=== PATIENT | male | born 1940 | race Caucasian/White ===

== ENCOUNTER 2024-10-26 23:48 | Inpatient (IN) | payer MEDICARE, OTHER, SELFPAY ==
[2024-10-26 18:03] VITALS: BP 149/90
[2024-10-26 18:25] LABS: % Basophils 0.9 % (0-2); % Eosinophils 4.6 % (0-6); % Immature Granulocytes 0.1 % (0-0.5); % Lymphocytes 18.3 % (20.5-51.1); % Monocytes 10.3 % (1.7-9.3); % Neutrophils 65.8 % (42.2-75.2); Absolute Basophils 0.1 10^3/uL (0-0.2); Absolute Eosinophils 0.4 10^3/uL (0-0.7); Absolute Lymphocytes 1.4 10^3/uL (1.2-3.4); Absolute Monocytes 0.8 10^3/uL (0.1-0.6); Hemoglobin 13.2 g/dL (13.0-18.0); Mean Corp Hgb Conc. 33.8 g/dL (33.0-37.0); Mean Corpuscular Hgb 31.7 pg (27.0-31.0); Mean Corpuscular Volume 93.5 fL (80.0-94.0); Nucleated Red Blood Cells % 0 % (-); Platelet Count 242 10^3/uL (130-400); Red Blood Cell Count 4.17 10^6/uL (4.70-6.10); Red Cell Dist. Width 12.3 % (11.5-14.5); White Blood Cell Count 7.6 10^3/uL (4.8-10.8)
[2024-10-26 18:39] LABS: ALT (SGPT) 21 U/L (0-50); AST (SGOT) 24 U/L (17-59); Albumin 4.4 g/dl (3.5-5.0); Alkaline Phosphatase 55 U/L (38-126); Blood Urea Nitrogen 23 mg/dl (9-20); Calcium 9.1 mg/dl (8.4-10.2); Carbon Dioxide 27 mmol/L (22-30); Chloride 104 mmol/L (98-107); Glucose 106 mg/dl (70-99); Potassium 4.4 mmol/L (3.5-5.1); Sodium 138 mmol/L (135-145); Total Bilirubin 0.5 mg/dl (0.2-1.3); Total Protein 8.1 g/dl (6.3-8.2); eGFR > 60.00
[2024-10-26 18:51] LABS: Troponin I 0.016 ng/ml
[2024-10-26 20:53] VITALS: BP 153/93; BMI 29.7
[2024-10-26 21:00] VITALS: BP 151/94
[2024-10-26 21:09] LABS: NT-proBNP 5700 pg/ml
[2024-10-26 21:19] LABS: COVID-19 Antigen Negative (Negative)
--- NOTE | 2024-10-26 21:25 | ED.GENMED ---
History of Present Illness
General
Chief Complaint: Heart Rate Problem
Source: patient
Exam Limitations: none
Time Seen by Provider: 10/26/24 20:19
History of Present Illness
History of Present Illness:
84-year-old male with history of hyperlipidemia and seasonal allergies with enlarged prostate presents with 2 to 3 days worth of chest pressure and exertional dyspnea. He notes he has trouble laying flat as he gets more short of breath. He denies
any swelling in the legs. No vomiting fever chills or cough. No abdominal pain. No other complaints at this time
Past History
Past History
ED Past Medical History: Hypercholesterolemia
ED Past Surgical History: Other (hernia)
Social History
Personal:
Living: with family
Phy Exam
Physical Exam
Physical Exam:
General: Well-appearing male no acute respiratory distress
HEENT: Normocephalic atraumatic
Heart: Regular rate and rhythm
Lungs: Clear no wheeze
Extremities: Very mild edema bilateral lower extremities
Skin is warm no rash
Course
Orders/Labs/Results
Orders:
Orders
10/26/24 17:53
Electrocardiogram (*1) Urgent
Reason for Study: Chest Pain
10/26/24 17:54
EKG- Treatment ONCE
10/26/24 18:08
Complete Blood Count/With Diff Urgent
Comprehensive Metabolic Panel Urgent
NT-proBNP Urgent
Comment: ADD ON
Troponin I Urgent
10/26/24 20:46
CXR2 [CR Chest - 2 Views ] Urgent
Comment:
Reason For Exam: SOB cough
10/26/24 20:49
COVID-19 Antigen Urgent
Source: Nasal Swab
Influenza A+B Rapid Molecular Urgent
YAZAN Source: Nasal Swab
Specimen Description:
10/26/24 22:13
Furosemide [Lasix] 60 mg IV NOW STA
Abnormal Lab Results
10/26/24
18:08
RBC 4.17 L 10^6/uL
(4.70-6.10)
MCH 31.7 H pg
(27.0-31.0)
Absolute Monos (auto) 0.8 H 10^3/uL
(0.1-0.6)
Lymphocytes % 18.3 L %
(20.5-51.1)
Monocytes % 10.3 H %
(1.7-9.3)
BUN 23 H mg/dl
(9-20)
Glucose 106 H mg/dl
(70-99)
10/26/24 18:08
10/26/24 18:08
Vital Signs
Initial and Last Documented VS:
Initial Vital Signs
Temp Pulse Resp BP Pulse Ox
98.5 F 94 16 149/90 97
10/26/24 18:03 10/26/24 18:03 10/26/24 18:03 10/26/24 18:03 10/26/24 18:03
Last Documented Vital Signs
Temp Pulse Resp BP Pulse Ox
98.5 F 94 16 149/90 96
10/26/24 18:03 10/26/24 18:03 10/26/24 18:03 10/26/24 18:03 10/26/24 20:57
MDM/Problems Addressed
Differential Diagnosis Includes:
Patient presents with chest pressure and exertional dyspnea. He also describes orthopnea. EKG shows left bundle branch block which is new. BNP is elevated. Chest x-ray pending. I suspect CHF. He has concerning story with exertional dyspnea and
chest pressure. Likely will require admission for IV diuresis and further evaluation
*Critical Care Note
Total Time (30-74mins, 75-104mins- exclusive of procedures): Not Applicable
Update Note
Update Note:
CXR with pulmonary edema. BNP 5700. trop is normal. Patient has new left bundle branch block on EKG. Suspect underlying CHF. Lasix ordered. Will admit to hospital
ED Attending Note
-
Portions of this chart may have been created with voice recognition software.� Occasional wrong word or��sound alike� substitutions may have occurred due to the inherent limitations of voice recognition software.
Discharge Plan
Departure
Patient Disposition: Admit
Date of Disposition: 10/26/24
Time of Disposition: 22:15
Presentation/result/management discussed w/ accepting MD/DO: Hospitalist
Discharge Problem:
CHF (congestive heart failure), Left bundle branch block
Prescriptions:
No Action
multivitamin 1 EACH tablet
1 ea PO DAILY
ascorbic acid (vitamin C) [Vitamin C] 1,000 MG tablet
1,000 mg PO DAILY
atorvastatin 10 MG tablet
5 mg PO DAILY
finasteride 5 MG tablet
5 mg PO DAILY
esomeprazole magnesium [Nexium] 20 MG capsule,delayed release(DR/EC)
20 mg PO DAILY
docosahexaenoic acid-epa 1 CAP capsule
1,200 mg PO DAILY
loratadine 10 MG capsule
10 mg PO DAILY PRN (Reason: allergies)
cetirizine 10 MG tablet
10 mg PO DAILY PRN (Reason: allergies)
fluticasone propionate [Flonase] 50 mcg/actuation Freer,Suspension
2 spray INTRANASAL DAILY
Referrals:
NONE,* [Active] -
Interventions
Interventions:
*Risk Screen - Suicide Last Done: 10/26/24 18:03
*General Assessment Last Done: 10/26/24 20:57
*Neglect/Abuse Screening Last Done: 10/26/24 18:03
*ED- Fall Risk Assessment Last Done: 10/26/24 20:57
*ED COVID-19 Vaccine History Last Done: 10/26/24 20:57
ED- Cardiac Assessment Last Done: 10/26/24 20:59
ED- Pulmonary Assessment Last Done: 10/26/24 20:59
Discharge Date and Time
Print Language: KYRGYZ
[2024-10-26 22:25] VITALS: BP 150/90
[2024-10-26] MEDS: LASIX 60 MG IV (22:25)
--- NOTE | 2024-10-26 22:25 | HPS.HSE ---
Addendum entered and electronically signed by Radha Victoria DO 10/27/24 01:33:
I saw and examined the patient. I reviewed the patient at length with Farrah and agree with her history and physical and assessment and plan of care as per below. The patient is a very pleasant 84-year-old gentleman with past medical history
significant for hyperlipidemia, GERD, seasonal allergies, BPH, hyperlipidemia who presented to the emergency department secondary to worsening shortness of breath over the past several days. He was his birthday last week and he notes that he ended
up waking up at 1 in the morning after going to the bathroom and noticed himself to be short of breath. He then stayed awake watching a movie until around 5 AM. He said he was able to fall back to sleep at that point but noticed that he was still
having worsening of dyspnea. He denies any specific weight gain or increased swelling to bilateral lower extremities. He denies any fevers chills.
In the emergency department in the emergency department in the ED blood pressure 153/83, pulse 93, oxygen saturation 93 to 97% on room air, afebrile
Lungs he has bibasilar rales
Cardiovascular regular rate and rhythm no murmur sounds or gallops
Abdomen is soft nontender normoactive bowel sounds
Extremities is 1+ pitting edema up to the shins bilaterally
Chest x-ray remarkable for mild diffuse interstitial prominence without any infiltrates, likely interstitial edema
BUN 23, glucose 106 proBNP 5700 with none prior to compare
EKG is normal sinus rhythm with a new left bundle branch block
# Concern is for new onset of acute congestive heart failure, in the setting of a new left bundle branch block
-Continue IV Lasix daily
-color television console monitor
-Cardiology consultation is appreciated
-Initiate aspirin daily, continue statin therapy
I agree with the additional assessment and plan of care as per below
Original Note:
Family Physician
-
Family Physician: Harsh Oakes
Chief Complaint
-
Shortness of breath with chest pressure, exertional dyspnea x 1 week, orthopnea x 1 week, cough times few months
History of Present Illness
84-year-old female complaining of 2 to 3 days of shortness of breath with with exertional dyspnea along with orthopnea. Reports a cough with occasional mucus over the past few months dyspnea on exertion increased over the past week especially with
walking up stairs. Last night when lying down he was having difficulty getting a breath so he stood straight up in bed and was able to relieve that symptom by taking a deep breath. He denies swelling to legs, cough, fever, chills, sore throat,
abdominal pain, nausea, vomiting, diarrhea, urinary symptoms he has past medical history of hyperlipidemia GERD, seasonal allergies, BPH, HLD, deviated septum
Medical History
Past Medical History
Past Medical History: Reports Other
Additional Past Medical History:
hyperlipidemia
GERD
seasonal allergies
BPH
HLD
Past Surgical History: Reports Other
Additional Past Surgical History:
Hernia repair
Lipoma removal
Sebaceous cyst removed from back
Mchenry tumor removal
Social History
Tobacco: Non-smoker
Alcohol: Occasional (1 glass of wine red or white 3 times a week or small glass of carlo)
Drug: None
Personal:
Living: With Family
Employment: Retired
Family History
Family History: Other (Mother MVA age 84, father CHF age 40, 1 sister no contact, adult children healthy)
Allergies / Home Medications
Allergies reflects when Allergies were last updated in [facility].
Home Medications with original date entered in [facility]
Allergy/Medication List:
Allergies
Allergy/AdvReac Type Severity Reaction Status Date / Time
No Known Allergies Allergy Verified 10/26/24 18:05
Home Medications
ascorbic acid (vitamin C) 1,000 mg tablet (Vitamin C) 1,000 mg PO DAILY 05/26/19
atorvastatin 10 mg tablet 5 mg PO DAILY 05/26/19
esomeprazole magnesium 20 mg capsule,delayed release (Nexium) 20 mg PO DAILY 05/26/19
finasteride 5 mg tablet 5 mg PO DAILY 05/26/19
loratadine 10 mg capsule 10 mg PO DAILYPRN PRN allergies 05/26/19
cetirizine 10 mg tablet 10 mg PO DAILYPRN PRN allergies 11/25/20
fluticasone propionate 50 mcg/actuation nasal spray,suspension 2 spray intranasal DAILY 10/26/24
omega 6-bvv-hfi-fish oil 1,200 mg (144 mg-216 mg) capsule (Fish Oil) 1 cap PO DAILY 10/26/24
therapeutic multivitamin 1 tab PO DAILY 10/26/24
Review of Systems
-
History Source: Patient and Family ( at bedside)
A 12 point ROS was completed and negative except as noted: Yes
Constitutional: Denies Fatigue or Chills
EENT: Denies Sore Throat or Runny Nose
Respiratory: Reports Cough (X 1 week), Trouble Breathing and Other (DIALLO with climbing stairs, orthopnea with lying down for the past week)
Cardiac: Denies Chest Pain, Diaphoresis or Palpitations
Abdomen/GI: Denies Abdominal Pain, Nausea, Vomiting, Diarrhea, Constipated, Bloody Stools or Black Stools
: Denies Dysuria, Frequency, Flank Pain, Incontinence, Difficulty Voiding, Urgency, Bleeding or Dark Urine
Musculoskeletal: Denies Joint Pain or Edema
Skin: Denies Itching or Rash
Neurological: Denies Dizzy, Headache or Weakness
Endocrine: Reports No Symptoms
Hematologic/Lymphatic: Reports No Symptoms
Psych: Reports Calm
Physical Exam
Vital Signs
Vital Signs
Temp Pulse Resp BP Pulse Ox
98.5 F 88 22 151/94 95
10/26/24 18:03 10/26/24 22:00 10/26/24 21:00 10/26/24 21:00 10/26/24 22:00
Physical Exam
General: Comfortable and Conversant; No Pain, Fever or Chills
HEENT: NormoCephalic, Anicteric, Moist mucous membranes, PERRLA, [place] Conjunctivae and No Ptosis
Respiratory: Other (Diminished breath sounds throughout right lung field); No Wheezes or Rales
Cardiac: S1/S2, Regular Rhythm and JVD; No Murmur, Rub, Gallop or Peripheral Edema
Breast: Deferred by me
GI: Soft, Non Tender, Non Distended, Normal Bowel Sounds and No Hepatosplenomegaly
Rectal: Deferred by Provider
Genito-urinary: Deferred by me
Musculoskeletal: No Clubbing, No Cyanosis and No Edema
Skin: Warm and Dry; No Rash or Jaundice
Neuro: AO x 3, No Motor Deficits, Nonfocal/grossly intact, Cranial Nerves Intact and No Sensory Deficits; No Slurred Speech, Facial Droop, Tremors or Sedated
Psych: Calm
Laboratory Results
-
10/26/24 18:08
10/26/24 18:08
Laboratory Results
Total Bilirubin 0.5 mg/dl (0.2-1.3) 10/26/24 18:08
AST 24 U/L (17-59) 10/26/24 18:08
ALT 21 U/L (0-50) 10/26/24 18:08
Alkaline Phosphatase 55 U/L (38-126) 10/26/24 18:08
Troponin I 0.016 ng/ml 10/26/24 18:08
Data Reviewed
-
Diagnostic Radiology: Report Reviewed by me
Lab Data: Labs Reviewed by me
Impression/Plan
-
Impression/plan:
Admit to telemetry
#Acute CHF symptomatic with shortness of breath difficult to take deep breath
COVID /influenza negative
BNP 5700, 94-96% RA
I/O, daily weights
-IV Lasix 60 mg given in ER
-Continue IV Lasix 40 mg daily
- Consult [facility]ology
-Check 2D echo
Follow CBC, BMP
- PT/OT/case management consult
CXR: Findings suggesting mild pneumonitis or interstitial edema cannot rule out component of underlying chronic interstitial lung disease
#New LBBB with prolonged QTc 515 likely from LBBB
- Monitor on telemetry
-Hold prolonging QTc agents
EKG: NSR 96 bpm, QTc 515 MS, LBBB new from November 2020
#Hyperlipidemia
-Check lipid profile
Continue atorvastatin 5 mg daily
#GERD
-Continue Nexium 20 mg daily or equivalent
#Seasonal allergies
#Deviated septum
-Continue cetirizine daily as needed, Flonase daily, loratadine 10 mg daily as needed
#BPH
Monitor urine output
Continue finasteride 5 mg daily
DVT prophylaxis
Subcu Lovenox
DNR per patient with present at bedside
[2024-10-26 23:00] VITALS: BP 161/95
[2024-10-27] VITALS (11 sets, daily range): BP systolic 108–153; BP diastolic 68–87; PULSE 94–96; O2SAT 94–95; BMI 28.3
[2024-10-27] MEDS: ASPIRIN 325 MG PO (01:46)
[2024-10-27 02:34] LABS: Troponin I 0.026 ng/ml
[2024-10-27 06:40] LABS: % Basophils 1.1 % (0-2); % Eosinophils 5.9 % (0-6); % Immature Granulocytes 0.2 % (0-0.5); % Lymphocytes 22.5 % (20.5-51.1); % Monocytes 10.7 % (1.7-9.3); % Neutrophils 59.6 % (42.2-75.2); Absolute Basophils 0.1 10^3/uL (0-0.2); Absolute Eosinophils 0.4 10^3/uL (0-0.7); Absolute Lymphocytes 1.4 10^3/uL (1.2-3.4); Absolute Monocytes 0.7 10^3/uL (0.1-0.6); Absolute Neutrophils 3.6 10^3/uL (1.4-6.5); Hematocrit 39.7 % (39.0-52.0); Hemoglobin 13.6 g/dL (13.0-18.0); Mean Corp Hgb Conc. 34.3 g/dL (33.0-37.0); Mean Corpuscular Hgb 31.1 pg (27.0-31.0); Mean Corpuscular Volume 90.6 fL (80.0-94.0); Nucleated Red Blood Cells % 0 % (-); Platelet Count 229 10^3/uL (130-400); Red Blood Cell Count 4.38 10^6/uL (4.70-6.10); Red Cell Dist. Width 12.3 % (11.5-14.5); White Blood Cell Count 6.1 10^3/uL (4.8-10.8)
[2024-10-27 06:57] LABS: ALT (SGPT) 21 U/L (0-50); AST (SGOT) 23 U/L (17-59); Albumin 3.9 g/dl (3.5-5.0); Alkaline Phosphatase 55 U/L (38-126); Blood Urea Nitrogen 23 mg/dl (9-20); Calcium 9.2 mg/dl (8.4-10.2); Carbon Dioxide 26 mmol/L (22-30); Chloride 105 mmol/L (98-107); Estimated Creatinine Clearance 60 ml/min; Glucose 100 mg/dl (70-99); HDL Cholesterol 45 mg/dl; LDL Cholesterol, Calculated 89 mg/dl; Potassium 3.9 mmol/L (3.5-5.1); Sodium 140 mmol/L (135-145); Total Bilirubin 0.8 mg/dl (0.2-1.3); Total Cholesterol 148 mg/dl (50-199); Total Protein 7.5 g/dl (6.3-8.2); Triglyceride 74 mg/dl (10-149); Very Low Density Lipoprotein 14 mg/dl (0-30); eGFR > 60.00
[2024-10-27 07:13] LABS: Troponin I 0.019 ng/ml
--- NOTE | 2024-10-27 08:00 | EDRN ---
Patient taken to room 1142 on monitor to room 1142-1 by earth science technical officer.
--- NOTE | 2024-10-27 08:30 | PTCARENOTE ---
Received patient from ED. Patient here with new diagnosis of HF. Receiving IV Diuretics. Pending Echo today.
--- NOTE | 2024-10-27 08:59 | W.PN.HOSP.TC ---
Addendum entered and electronically signed by Denilson Sahu MD 10/27/24 15:52:
Acute systolic CHF. Plan for cardiac cath
Original Note:
Today's Communication/Plan
-
IV Lasix
Assessment / Plan
Assessment / Plan
Physical Exam
General: Comfortable and Conversant; No Pain, Fever or Chills
HEENT: NormoCephalic, Anicteric, Moist mucous membranes, PERRLA, [place] Conjunctivae and No Ptosis
Respiratory: Other (Diminished breath sounds throughout right lung field and crackles); No Wheezes
Cardiac: S1/S2, Regular Rhythm and JVD; No Murmur, Rub, Gallop or Peripheral Edema
Breast: Deferred by me
GI: Soft, Non Tender, Non Distended, Normal Bowel Sounds and No Hepatosplenomegaly
Rectal: Deferred by Provider
Genito-urinary: Deferred by me
Musculoskeletal: No Clubbing, No Cyanosis and No Edema
Skin: Warm and Dry; No Rash or Jaundice
Neuro: AO x 3, No Motor Deficits, Nonfocal/grossly intact, Cranial Nerves Intact and No Sensory Deficits; No Slurred Speech, Facial Droop, Tremors or Sedated
Psych: Calm
A/P:
#Acute CHF, likely diastolic
COVID /influenza negative
BNP 5700, 94-96% RA
I/O, daily weights
-IV Lasix 60 mg given in ER
-Continue IV Lasix 40 mg BID
- Consult [facility]
-Check 2D echo
Follow CBC, BMP
- PT/OT/case management consult. Discussed with at bedside today
CXR: Findings suggesting mild pneumonitis or interstitial edema cannot rule out component of underlying chronic interstitial lung disease
#New LBBB with prolonged QTc 515 likely from LBBB
- Monitor on telemetry
-Hold prolonging QTc agents
EKG: NSR 96 bpm, QTc 515 MS, LBBB new from November 2020
#Hyperlipidemia
-Check lipid profile
Continue atorvastatin 5 mg daily
#GERD
-Continue Nexium 20 mg daily or equivalent
#Seasonal allergies
#Deviated septum
-Continue cetirizine daily as needed, Flonase daily, loratadine 10 mg daily as needed
#BPH
Monitor urine output
Continue finasteride 5 mg daily
DVT prophylaxis
Subcu Lovenox
DNR
Anticipated Discharge: 24 - 48 hours
Subjective/Interval History
-
Date of Service: October 27, 2024
Pte feels better, still sob, cp on off. Some cough
Objective Data
-
Labs:
Laboratory Results
10/27/24
06:28
WBC 6.1
Hgb 13.6
Hct 39.7
Plt Count 229
Sodium 140
Potassium 3.9
Chloride 105
Carbon Dioxide 26
BUN 23 H
Creatinine 1.0
Glucose 100 H
Calcium 9.2
Total Bilirubin 0.8
AST 23
ALT 21
Alkaline Phosphatase 55
Vital Signs:
Vital Signs
Temp Pulse Resp BP Pulse Ox
97.5 F 94 17 140/87 94
10/27/24 08:27 10/27/24 08:27 10/27/24 08:27 10/27/24 08:27 10/27/24 08:27
I&O
10/26/24 10/27/24 10/28/24
06:59 06:59 06:59
Intake Total 100 / 100
Output Total 2300 / 2300 750 / 750
Balance -2200 / -2200 -750 / -750
[2024-10-27] MEDS: LOW STRENGTH ASPIRIN 81 MG PO (09:25)
[2024-10-27] MEDS: PROTONIX 40 MG PO (09:25)
[2024-10-27] MEDS: LASIX 40 MG IV ×2 (09:26→17:24)
[2024-10-27] MEDS: PROSCAR 5 MG PO (09:26)
[2024-10-27] MEDS: THERAGRAN 1 TABLET PO (09:26)
[2024-10-27] MEDS: LIPITOR 5 MG PO (09:26)
[2024-10-27] MEDS: VITAMIN C 1000 MG PO (09:26)
--- NOTE | 2024-10-27 09:31 | CON.CAR ---
Addendum entered and electronically signed by Arlin Parson MD 10/27/24 14:17:
I saw and examined the patient.
The GEOPHYSICAL PROSPECTING PERMIT AGENT's note was reviewed and I agree with the note.
Comment: 84-year-old gent with past medical history of hyperlipidemia, BPH, benign monoclonal gammopathy presents for evaluation of increasing shortness of breath. This has been present for some time but became acutely aware of the issue on
Saturday night around 1:30 AM when he woke up from rest suddenly short of breath with chest pressure. Otherwise he does endorse orthopnea and increasing lower extremity edema. Weight has been slowly rising. He thought it was just due [place] but with the events on Saturday he was concerned. On exam, he has a JVD at 13 cm of H2O while sitting upright. Lungs are significant for bibasilar rales. He has a regular rate and rhythm. Trace lower
extremity edema. EKG shows sinus rhythm with left bundle branch block. Overall, he presents with acute on chronic heart failure of unspecified ejection fraction. He will have an echocardiogram. I am bit concerned about his event on Saturday
morning concerning for acute pulmonary edema. I recommend a right left heart cath when he is able to tolerate lying down flat. I am hopeful this will be in the morning. Will add to schedule an make n.p.o. after midnight. For now continue IV
diuresis with intensive monitoring of lytes and blood pressure. Will add GDMT once it is clear what his ejection fraction is. Will likely need curriculum assistant principal with case management for pricing of agents.
Original Note:
Consultation
Consultation Request
Date/Time Consultation Requested: 10/26/2024 23:00
Date/Time Consultation Performed: 10/27/2024 09:00
Requesting Provider: JHOAN Russo
Performing Provider: JHOAN Stanford for Dr. Parson
Reason for Consultation: Acute heart failure
Medical History
-
Chief Complaint: Shortness of breath
History of Present Illness:
Jay Guerra is an 84-year-old male with dyslipidemia, GERD, BPH, and benign monoclonal gammopathy presented to the emergency department with a chief complaint of shortness of breath. His shortness of breath was worse laying flat. He had associated
bilateral lower extremity edema. He endorses a weight gain of at least 3 pounds this weekend. He attributed the weight gain to caloric intake as it was both his and his 's birthday. Cardiology was consulted for heart failure management. He
also has a new left bundle branch block compared to his EKG in 2020.
Past Medical History
Past Medical History: GERD, Hypercholesterolemia and Other (Benign monoclonal gammopathy)
Past Surgical History: Other (Hernia repair)
Social History
Tobacco: Former Smoker (While in the )
Alcohol: Occasional
Drug: None
Personal:
Living: With Family
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
Family History
Family History: Reviewed & Not Pertinent
Allergies / Home Medications
Allergy/AdvReac Type Severity Reaction Status Date / Time
No Known Allergies Allergy Verified 10/26/24 18:05
�Medication �Instructions �Recorded �Confirmed �Type
ascorbic acid (vitamin C) 1,000 mg 1,000 mg PO DAILY 05/26/19 10/26/24 History
tablet (Vitamin C)
atorvastatin 10 mg tablet 5 mg PO DAILY 05/26/19 10/26/24 History
esomeprazole magnesium 20 mg 20 mg PO DAILY 05/26/19 10/26/24 History
capsule,delayed release (Nexium)
finasteride 5 mg tablet 5 mg PO DAILY 05/26/19 10/26/24 History
loratadine 10 mg capsule 10 mg PO DAILYPRN PRN allergies 05/26/19 10/26/24 History
cetirizine 10 mg tablet 10 mg PO DAILYPRN PRN allergies 11/25/20 10/26/24 History
fluticasone propionate 50 2 spray intranasal DAILY 10/26/24 10/26/24 History
mcg/actuation nasal
spray,suspension
omega 1-eyu-ybl-fish oil 1,200 mg 1 cap PO DAILY 10/26/24 10/26/24 History
(144 mg-216 mg) capsule (Fish Oil)
therapeutic multivitamin 1 tab PO DAILY 10/26/24 10/26/24 History
Review of Systems
-
History Source: Patient
All other systems: Negative unless noted
Constitutional: Fatigue
EENT: No Symptoms
Respiratory: No Symptoms
Cardiac: No Symptoms
Abdomen/GI: No Symptoms
: No Symptoms
Musculoskeletal: No Symptoms
Skin: No Symptoms
Neurological: No Symptoms
Endocrine: No Symptoms
Hematologic/Lymphatic: No Symptoms
Physical Exam
Vital Signs
Temp Pulse Resp BP Pulse Ox
97.5 F 94 17 140/87 94
10/27/24 08:27 10/27/24 08:27 10/27/24 08:27 10/27/24 08:27 10/27/24 08:27
Lab Results
10/27/24 06:28
10/27/24 06:28
Troponin I 0.019 ng/ml D 10/27/24 06:28
Bvh-Y-Byekfbuowdg Pept 5700 pg/ml 10/26/24 18:08
Physical Exam
General: Well Developed, Well Nourished, No Apparent Distress and Comfortable
HEENT: Normocephalic, Anicteric and Moist Mucous Membranes
Respiratory: Clear and Non Labored Respirations
Cardiac: S1/S2, Regular Rhythm and Peripheral Edema
Breast: Deferred by me
GI: Soft, Non Tender and Normal Bowel Sounds
Rectal: Deferred by Provider
Genito-urinary: No Costovertebral Tender
Musculoskeletal: No Clubbing and No Cyanosis
Skin: Warm and Dry
Neuro: AO x 3
Hematologic/Lymphatic: No Lymphadenopathy
Psych: Calm
Impression / Plan
-
I/P: 84M with dyslipidemia, GERD, BPH, and benign monoclonal gammopathy presented to the emergency department with a chief complaint of shortness of breath -> acute HF
Outpatient biomedical analytical scientist: None
Heart failure, presumed HFpEF - acute, new
-He presented with an elevated proBNP, orthopnea, and a chest x-ray with interstitial edema
-Diuresis with furosemide 40 mg IV twice daily, this requires intensive monitoring
-Echocardiogram today
-Trend daily weight, I/O, and BMP with diuresis
-Heart failure education, he has a scale at home
-Case management to felipe [id number]
Hypertension
-He is not on any agents in the outpatient setting
-Start medication after echocardiogram results
LBBB, chronicity unknown, not present 2020
Benign monoclonal gammopathy, follows with Dr. Marcus Marcus ([place] [facility] inpatient care manager rn)
Data Reviewed
-
EKG: Report Reviewed by me
Radiology: Report Reviewed by me
Labs: Labs Reviewed by me
Old Records: Reviewed
[2024-10-27] MEDS: TESSALON PERLES 100 MG PO (13:10)
--- NOTE | 2024-10-27 13:29 | CM ---
CM following re: discharge planning.
Reviewed pt's chart, met with pt and pt's spouse at bedside.
Pt is an 84 year old male, admitted with primary dx of Acute CHF. PMH includes: hyperlipidemia, GERD, seasonal allergies, BPH, hyperlipidemia.
Pt reports he lives with spouse 2SH, 3 steps to enter, has 3 supportive children. Pt described himself as independent in all areas [employer]. No DME, VN or SNF history.
Medications felipe checked with [facility] prescription plan:
Farxiga 10 mg D: 30 days- $143.93, 90 days - $208.65
Jardiance 10 mg D: 30 days - $145.00 90 days - $213.67.
Both pt, her and MD are aware.
CM will provide a feewe30 day coupon for a chosen medication.
PCP: Dean Oakes
[facility]
D/C plan: home with anticipated no needs. Spouse to transport at discharge.
CM will follow with discharge plan updates as hospitalization progresses
[2024-10-27] MEDS: NITROSTAT (SUBLINGUAL) 0.4 MG SL (15:32)
--- NOTE | 2024-10-27 15:50 | PTCARENOTE ---
Patient reports return of left-sided chest pressure with brief intermittent 'zapping' chest pain. Pressure is about 3/10 on the severity scale. Vitals obtained, cardiology notified.
EKG, Troponin Obtained. SL Nitro given x 1 with good relief. Also supplied with 2L NC.
[2024-10-27 16:10] LABS: Troponin I 0.015 ng/ml
[2024-10-27] MEDS: LOVENOX 40 MG SC (17:24)
[2024-10-27] MEDS: TOPROL XL 25 MG PO (20:54)
[2024-10-27 20:59] LABS: Troponin I 0.013 ng/ml
[2024-10-28] VITALS (14 sets, daily range): BP systolic 103–141; BP diastolic 60–83; BMI 27.9
[2024-10-28 07:25] LABS: Blood Urea Nitrogen 31 mg/dl (9-20); Calcium 9.5 mg/dl (8.4-10.2); Carbon Dioxide 27 mmol/L (22-30); Chloride 102 mmol/L (98-107); Estimated Creatinine Clearance 50 ml/min; Glucose 112 mg/dl (70-99); Potassium 4.3 mmol/L (3.5-5.1); Sodium 140 mmol/L (135-145); eGFR > 60.00
--- NOTE | 2024-10-28 08:25 | W.PN.HOSP.TC ---
Today's Communication/Plan
-
IV Lasix. Cardiac cath
Assessment / Plan
Assessment / Plan
Physical exam:
General: Well Developed, Well Nourished and No Apparent Distress
HEENT: Normocephalic, Atraumatic and Moist Mucous Membranes
Respiratory: Bilateral crackles; Negative Wheezes or Rhonchi
Cardiac: Regular Rhythm and S1/S2,
GI: Soft, Nontender and Nondistended
Musculoskeletal: No Clubbing, No Cyanosis and trace edema
Neuro: Awake, Alert and Oriented, no neurological deficits
Psych: Calm
A/P:
Acute systolic and diastolic congestive heart failure:
IV Lasix 40 mg twice a day
GDMT with metoprolol succinate 25 mg p.o. daily and might need rest of GDMT medications down the road.
Echo showed EF 35% and stage II diastolic dysfunction and mild aortic regurgitation
Cardiology consult appreciated
Plan for cardiac catheterization today
Discussed with at bedside
Hypertension:
Started on beta-blockers
Hyperlipidemia:
Continue statin
MGUS:
Follow-up with hematology as outpatient
LBBB and first-degree AV block:
court recording monitor
BPH:
Continue Proscar
DVT prophylaxis:
Lovenox SQ
CODE STATUS:
DNR
Total time spent on today's encounter was 52 minutes which included time spent in counseling the patient/family regarding diagnosis and treatment plan as listed above, goals of care, and symptom management. Case was discussed with nursing staff,
specialists, and care coordinators/case management. All labs and imaging personally reviewed by me. Remainder the time spent in detailed review of previous records, lab data, imaging, and other medical provider documentation.
Anticipated Discharge: 24 - 48 hours
Subjective/Interval History
-
Date of Service: October 28, 2024
Patient feels better with less shortness of breath. No chest pain. Afebrile
Objective Data
-
Labs:
Laboratory Results
10/28/24
06:46
Sodium 140
Potassium 4.3
Chloride 102
Carbon Dioxide 27
BUN 31 H
Creatinine 1.2
Glucose 112 H
Calcium 9.5
Vital Signs:
Vital Signs
Temp Pulse Resp BP Pulse Ox
97.6 F 94 18 132/82 95
10/28/24 03:00 10/28/24 03:00 10/28/24 03:00 10/28/24 03:00 10/28/24 03:00
I&O
10/27/24 10/28/24 10/29/24
06:59 06:59 06:59
Intake Total 100 / 100
Output Total 2300 / 2300 2850 / 2850
Balance -2200 / -2200 -2850 / -2850
--- NOTE | 2024-10-28 08:27 | W.PN.CD ---
Today's Communication / Plan
-
Cardiac catheterization today.
Uptitrate GDMT post cath.
Continue diuresis.
Impression / Plan
-
Impression/Plan: 84M with dyslipidemia, GERD, BPH, and benign monoclonal gammopathy presented to the emergency department with a chief complaint of shortness of breath, subsequently diagnosed with acute HFrEF (LVEF 35%).
#HFrEF
-Acute, new diagnosis.
-Diuresis with furosemide 40 mg IV twice daily. This requires intensive monitoring.
-Echocardiogram shows global hypokinesis with LVEF 35%.
-Trend daily weight, I/O, and BMP with diuresis.
-L/R HC today to clarify filling pressures and coronary anatomy.
-GDMT as hemodynamics will tolerate. Continue metoprolol. Start sacubitril/valsartan and dapagliflozin tomorrow, post cath.
-Cardiac catheterization today to clarify coronary anatomy and filling pressures.
#Hypertension
-New diagnosis.
-He is not on any agents in the outpatient setting.
-Monitor response to metoprolol.
-BP will be affected by the addition of sacubitril/valsartan.
#HLD
-Chronic.
-Total cholesterol = 148, LDL = 89, HDL = 45, Triglycerides = 74.
-Continue atorvastatin 5 mg daily. This may be adjusted after catheterization.
#LBBB/First degree AV block
-New diagnosis.
-Chronicity unknown, not present 2020.
#MGUS
-Chronic.
-Follows with Dr. Marcus Marcus ([place] [facility] morning caregiver).
-IgG 2380 in 2018. Possible progression (amyloid)? There is mild concentric remodling on echo, but no LVH. No renal failure.
Subjective/Interval History:
Weight down 1.2 kg (92 --> 90.8).
BP 108-141/69-82 mmHg.
Feels improved from yesterday.
DATA:
Echocardiogram, 10/27/2024:
CONCLUSIONS
Moderately reduced left ventricular systolic function. Left ventricular
ejection fraction is 35% by volumetric and Murguia's Method of Disc. Global
hypokinesis.
Stage II diastolic dysfunction suggestive of abnormal relaxation and increased
filling pressures.
Mild aortic regurgitation.
No prior study available for comparison.
Physical Exam
Vital Signs/Labs
Vital Signs
Temp Pulse Resp BP Pulse Ox
36.4 C 94 18 132/82 95
10/28/24 03:00 10/28/24 03:00 10/28/24 03:00 10/28/24 03:00 10/28/24 03:00
10/26/24 10/27/24 10/28/24
11:59 11:59 11:59
Actual Weight 92 kg 90.804 kg
10/27/24 06:28
10/28/24 06:46
Magnesium 2.0 mg/dl (1.6-2.3) 10/27/24 06:28
Triglycerides 74 mg/dl (10-149) 10/27/24 06:28
LDL Cholesterol, Calc 89 mg/dl 10/27/24 06:28
VLDL Cholesterol, Calc 14 mg/dl (0-30) 10/27/24 06:28
HDL Cholesterol 45 mg/dl 10/27/24 06:28
10/26/24
18:08
Tic-L-Irnpyjmhxer Pept 5700
LAB Results
10/26/24 10/27/24 10/27/24
18:08 02:01 06:28
Troponin I 0.016 0.026 D 0.019 D
10/27/24 10/27/24
15:36 20:26
Troponin I 0.015 0.013
Physical Exam
Constitutional: No acute distress and Comfortable
EENT: Anicteric and Moist mucous membranes
Cardiovascular: Rhythm & rate is regular, Pedal edema is absent, JVD pressure is normal, S1S2 is normal and Murmur/rub/gallop absent
Respiratory: Respiratory effort normal and Other (Decreased throughout.)
GI: Soft, Distention absent, Flat, Non tender, Normal bowel sounds and Distention present
Neuro/Psych: AO x 3
Data Reviewed
-
Date of Service: October 28, 2024
Medical Decision Making: Reviewed Test Results, Independent Historian Assessment and Test Interpretation
EKG: Tracing Personally Visualized and interpreted and Report Reviewed by me
Echo: Tracing Personally Visualized and interpreted and Report Reviewed by me
X-Ray/CT/US/MRI/NUC/PET: Image Personally Visualized and interpreted and Report Reviewed by me
Labs: Labs Reviewed by me
Old Records: Reviewed
[2024-10-28] MEDS: PROTONIX 40 MG PO (09:00)
[2024-10-28] MEDS: LOW STRENGTH ASPIRIN 81 MG PO (09:00)
[2024-10-28] MEDS: VITAMIN C 1000 MG PO (09:01)
[2024-10-28] MEDS: PROSCAR 5 MG PO (09:01)
[2024-10-28] MEDS: LIPITOR 5 MG PO (09:01)
[2024-10-28] MEDS: THERAGRAN 1 TABLET PO (09:04)
--- NOTE | 2024-10-28 09:10 | PTCARENOTE ---
Spoke with Dr. Parson about AM Lasix. Hold until after cath.
--- NOTE | 2024-10-28 12:34 | ITS.CL.CATH ---
[facility] - Catheterization
Cardiac Catheterization
Procedure Report:
CARDIAC CATHETERIZATION REPORT
Date of Procedure: 10/28/2024
Referring: Saida Parson M.D.
Indication: New cardiomyopathy, assessment of filling pressures.
PROCEDURE:
1. Right heart catheterization.
2. Coronary angiography.
3. Left heart catheterization.
4. IFR of the mid LAD.
A total of 26 minutes of procedural/moderate sedation was utilized. An independent coroner/medical examiner was present to assist with and help manage the patient's level of consciousness and physiologic status.
ACCESS:
1. 6 Bhutanese right radial artery using a modified Seldinger.
2. 5 Bhutanese right in the cubital vein using a modified Seldinger technique under ultrasound guidance. Ultrasound image obtained.
CATHETERS:
1. 5 Bhutanese balloon wedge.
2. 5 Bhutanese JR4.
3. 5 Bhutanese JL 3.5.
4. 6 Bhutanese EBU 3.5 guiding catheter.
HEMODYNAMIC DATA
Weight (kg): 91.6
AO (s/d/x, mmHg): 145/84/111
LV (s/x, mmHg): 145/27
PCWP (a/v/x, mmHg): 31/38/27
PA (s/d/x, mmHg): 54/28/37
RV (s/x, mmHg): 54/9
RA (a/v/x, mmHg): 15/
SVC SvO2 (%): 70.9
IVC SvO2 (%): Not obtained.
RA SvO2 (%): Not obtained.
RV SvO2 (%): Not obtained.
PA SvO2 (%): 62.9
SaO2 (%): 89.6
Hbg (g/dL): 15.0
ULYSSES
CO (L/min): 6.89
CI (L/min/m2): 3.26
Thermodilution
CO (L/min): Not performed.
CI (L/min/m2): Not performed.
TPG (mmHg): 10
PVR (Delgado Units): 1.45
SVR (dynes*seconds*cm^-5): 1184
AVO2 Diff (Volume %): 5.45
AV gradient (x, mmHg): None.
AV area (cm2): Normal.
MV gradient (x, mmHg): Not obtained.
MV area (cm2): Not obtained.
LEFT VENTRICULOGRAPHY: Not performed.
AORTOGRAPHY: Not performed.
CORONARY ANGIOGRAPHY
Dominance: Right.
Left Main: Normal size, bifurcating vessel. There is no coronary artery disease.
LAD: Normal size vessel giving rise to 2 diagonals then wrapping around the apex. There is a 40% lesion in the mid LAD spanning the origin of D2. There is a 70% lesion in the proximal third of the medium sized second diagonal.
Ramus: Congenitally absent.
Circumflex: Large size, nondominant vessel giving rise to 2 obtuse marginals. There is no coronary artery disease.
RCA: Normal size, dominant vessel. There are minor luminal irregularities.
INTERVENTIONS
1. Successful IFR of the 40% mid LAD stenosis, demonstrating nonocclusive disease (IFR = 0.93).
Narrative:
The decision was made to perform physiologic testing. The diagnostic catheter was removed over a wire and exchanged for a(n) 6 Bhutanese EBU 3.5 guiding catheter. The guiding catheter was advanced into the ascending aorta and seated in the left main
coronary artery. Additional heparin was given to obtain an ACT greater than 250 seconds. An iFR wire was zeroed outside of the body, then inserted into the guiding sheath. The wire was advanced and the transducer was normalized just outside of the
guiding catheter tip. The wire was advanced into the distal LAD. Three iFR measurements were taken. The lesion was determined to be nonocclusive (0.93).
Closure Device: Vascular band for the right radial artery, manual pressure for the right antecubital vein.
Radiation dose (mGy): 458
DAP (cm2.Gy): 22.797
Fluoroscopy time (minutes): 8.0
CONCLUSIONS:
1. Right dominant circulation with luminal irregularities in the RCA, a 70% lesion in the proximal third of D2 and a nonocclusive 40% lesion in the mid LAD (IFR = 0.93).
2. Severely elevated filling pressures (LVEDP = 27 mmHg, PCWP = 27 mmHg at 91.6 kg).
3. Preserved cardiac function (cardiac index = 3.26 L/min/m�)
4. 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
RECOMMENDATIONS:
1. Expectant management after cardiac catheterization via right radial/antecubital approach.
2. Limited weight bearing on the right wrist for one week.
3. Continue diuresis given severely elevated filling pressures.
4. Aggressive primary prevention with high-dose, high potency statin. Goal LDL <55.
5. OMT/GDMT as hemodynamics will tolerate.
Copy to: Saida Parson M.D., Harsh Oakes M.D.
Cluas Santana DO, FACC, FACP
[2024-10-28 13:20] LABS: ACT-LR - POC > 397 Seconds (116-155)
[2024-10-28] MEDS: LASIX 40 MG IV ×2 (13:52→17:22)
[2024-10-28] MEDS: LOVENOX 40 MG SC (17:22)
[2024-10-28] MEDS: MIRALAX 17 GRAMS PO (20:12)
[2024-10-28] MEDS: COLACE 100 MG PO (20:12)
[2024-10-28] MEDS: TOPROL XL 25 MG PO (20:25)
[2024-10-29] VITALS (7 sets, daily range): BP systolic 94–143; BP diastolic 60–74; PULSE 103; O2SAT 97; BMI 28.1
[2024-10-29] MEDS: DULCOLAX 10 MG RECTAL (04:36)
--- NOTE | 2024-10-29 05:50 | PTCARENOTE ---
2000 pt very constipated states he goes every day. s/w GRETEL Palomo - see MAR re: Miralax and Colace; results pending.
0340 still no bowel movement. s/w GRETEL Palomo administered dulcolax suppository; results pending
0500 still no bowel movement. obtained PJ. results pending.
[2024-10-29 07:43] LABS: Hematocrit 41.2 % (39.0-52.0); Hemoglobin 14.2 g/dL (13.0-18.0); Mean Corp Hgb Conc. 34.5 g/dL (33.0-37.0); Mean Corpuscular Hgb 31.5 pg (27.0-31.0); Mean Corpuscular Volume 91.4 fL (80.0-94.0); Mean Platelet Volume 9.4 fL (7.4-10.4); Platelet Count 245 10^3/uL (130-400); Red Blood Cell Count 4.51 10^6/uL (4.70-6.10); Red Cell Dist. Width 12.4 % (11.5-14.5)
[2024-10-29 08:17] LABS: Blood Urea Nitrogen 37 mg/dl (9-20); Calcium 9.3 mg/dl (8.4-10.2); Carbon Dioxide 23 mmol/L (22-30); Chloride 102 mmol/L (98-107); Estimated Creatinine Clearance 50 ml/min; Glucose 170 mg/dl (70-99); Potassium 4.2 mmol/L (3.5-5.1); Sodium 138 mmol/L (135-145); eGFR > 60.00
[2024-10-29] MEDS: LIPITOR 5 MG PO (08:38)
[2024-10-29] MEDS: PROTONIX 40 MG PO (08:38)
[2024-10-29] MEDS: VITAMIN C 1000 MG PO (08:38)
[2024-10-29] MEDS: THERAGRAN 1 TABLET PO (08:38)
--- NOTE | 2024-10-29 08:38 | W.PN.CD ---
Addendum entered and electronically signed by Monster Cates MD 10/29/24 08:57:
Add spironolactone and Diovan
If entresto cost OK then move to Entresto
If copay of [id number] OK will add soon
Original Note:
Today's Communication / Plan
-
IV diuresis
GDMT
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
- Consider outpatient cardiac MRI
- Repeat evaluation by hematology
- May consider endomyocardial biopsy (outpatient after evaluation)
55 min spent today reviewing chart, counselling, generating document
Impression / Plan
-
Background: 84M with dyslipidemia, GERD, BPH, and benign monoclonal gammopathy presented to the emergency department with a chief complaint of shortness of breath, subsequently diagnosed with acute HFrEF (LVEF 35%).
Acute HFrEF, new
- Still volume overloaded
- Adding GDMT
HTN
HLD,
- LDL = 89, HDL = 45, Triglycerides = 74.
- Increase statin, goal LDL less than 70 with CAD
LBBB/First degree AV block, ew diagnosis, not present 2020
- If LVEF does not improve ACCOUNT ADMINISTRATOR (BiV pacing +/- ICD) will be an option
MGUS
- Chronic.
- Follows with Dr. Marcus Marcus ([place] [facility] urgent care physician assistant).
- IgG 2380 in 2018.
- Possible progression (amyloid)? There is mild concentric LVH by measurement
Subjective/Interval History:
Still with dyspnea
DATA:
Cath 10/28/2024: 40% mLAD, 70% D2, LVEDP 27, RA 9, PA 54/28, PCWP 27
Echo 10/27/2024: LVEF 35, global hypo, grade II diastolic dysxn, mild AI, LVH by measurement
EKG 10/27/2024: SR 102 bpm, NM 232, LBBB, QRS 160 ms
Case Management:
Medications felipe checked with [facility] prescription plan:
Farxiga 10 mg D: 30 days- $143.93, 90 days - $208.65
Jardiance 10 mg D: 30 days - $145.00 90 days - $213.67.
Both pt, her and MD are aware.
CM will provide a feewe30 day coupon for a chosen medication.
Physical Exam
Vital Signs/Labs
Vital Signs
Temp Pulse Resp BP Pulse Ox
97.9 F 96 22 128/71 93
10/29/24 07:00 10/29/24 07:00 10/29/24 07:00 10/29/24 07:00 10/29/24 07:00
10/28/24 10/29/24 10/30/24
06:59 06:59 06:59
Actual Weight 90.804 kg 91.257 kg
10/29/24 06:38
10/29/24 06:38
Magnesium 2.0 mg/dl (1.6-2.3) 10/27/24 06:28
Triglycerides 74 mg/dl (10-149) 10/27/24 06:28
LDL Cholesterol, Calc 89 mg/dl 10/27/24 06:28
VLDL Cholesterol, Calc 14 mg/dl (0-30) 10/27/24 06:28
HDL Cholesterol 45 mg/dl 10/27/24 06:28
10/26/24
18:08
Ugi-N-Kxwhwboslzn Pept 5700
LAB Results
10/26/24 10/27/24 10/27/24
18:08 02:01 06:28
Troponin I 0.016 0.026 D 0.019 D
10/27/24 10/27/24
15:36 20:26
Troponin I 0.015 0.013
Physical Exam
Constitutional: No acute distress
EENT: Anicteric
Cardiovascular: Rhythm & rate is regular and Pedal edema is absent
Respiratory: Respiratory effort normal and Crackles Present (at bases)
GI: Soft and Distention absent
Neuro/Psych: AO x 3
Other: Cath Site (normal)
Data Reviewed
-
Date of Service: October 29, 2024
[2024-10-29] MEDS: PROSCAR 5 MG PO (08:39)
[2024-10-29] MEDS: LOW STRENGTH ASPIRIN 81 MG PO (08:39)
[2024-10-29] MEDS: LASIX 40 MG IV ×2 (08:39→17:02)
[2024-10-29] MEDS: COLACE PO (08:40)
--- NOTE | 2024-10-29 08:43 | W.PN.HOSP.TC ---
Today's Communication/Plan
-
IV Lasix.
Assessment / Plan
Assessment / Plan
Physical exam:
General: Well Developed, Well Nourished and No Apparent Distress
HEENT: Normocephalic, Atraumatic and Moist Mucous Membranes
Respiratory: Bilateral crackles; Negative Wheezes or Rhonchi
Cardiac: Regular Rhythm and S1/S2,
GI: Soft, Nontender and Nondistended
Musculoskeletal: No Clubbing, No Cyanosis and trace edema
Neuro: Awake, Alert and Oriented, no neurological deficits
Psych: Calm
Cardiac cath:
1. Right dominant circulation with luminal irregularities in the RCA, a 70% lesion in the proximal third of D2 and a nonocclusive 40% lesion in the mid LAD (IFR = 0.93).
2. Severely elevated filling pressures (LVEDP = 27 mmHg, PCWP = 27 mmHg at 91.6 kg).
3. Preserved cardiac function (cardiac index = 3.26 L/min/m�)
4. 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
A/P:
Acute systolic and diastolic congestive heart failure:
Concerns for progression of amyloid and outpatient MRI and consideration for endomyocardial biopsy
Reevaluation by hematology as outpatient
IV Lasix 40 mg twice a day
GDMT with metoprolol succinate 25 mg p.o. daily and adding Diovan and spironolactone and checking cost of Entresto and SGLT2 inhibitor.
Echo showed EF 35% and stage II diastolic dysfunction and mild aortic regurgitation
Cardiology consult appreciated-discussed with cardiology today via [place] text
Status post cardiac catheterization 10/28 with evidence of CAD and decided on medical management
Discussed with at bedside prior
CAD:
Continue aspirin, beta-blockers, and statins.
Hypertension:
Started on beta-blockers, Diovan, Aldactone.
Hyperlipidemia:
Continue statin but increased doses
MGUS:
Follow-up with hematology as outpatient
LBBB and first-degree AV block:
handkerchief folder
Consideration of BRANCH MANAGER TRAINEE if EF does not improve on optimal treatment down the road.
BPH:
Continue Proscar
DVT prophylaxis:
Lovenox SQ
CODE STATUS:
DNR
Total time spent on today's encounter was 52 minutes which included time spent in counseling the patient/family regarding diagnosis and treatment plan as listed above, goals of care, and symptom management. Case was discussed with nursing staff,
specialists, and care coordinators/case management. All labs and imaging personally reviewed by me. Remainder the time spent in detailed review of previous records, lab data, imaging, and other medical provider documentation.
Anticipated Discharge: 24 - 48 hours
Subjective/Interval History
-
Date of Service: October 29, 2024
Patient still having some cough and some shortness of breath. He cannot lie flat yet. No chest pain
Objective Data
-
Labs:
Laboratory Results
10/29/24
06:38
WBC 9.0
Hgb 14.2
Hct 41.2
Plt Count 245
Sodium 138
Potassium 4.2
Chloride 102
Carbon Dioxide 23
BUN 37 H
Creatinine 1.2
Glucose 170 H
Calcium 9.3
Vital Signs:
Vital Signs
Temp Pulse Resp BP Pulse Ox
97.9 F 96 22 128/71 93
10/29/24 07:00 10/29/24 07:00 10/29/24 07:00 10/29/24 07:00 10/29/24 07:00
I&O
10/28/24 10/29/24 10/30/24
06:59 06:59 06:59
Intake Total 440 / 440
Output Total 2850 / 2850 1150 / 1150
Balance -2850 / -0860 - / -710
--- NOTE | 2024-10-29 16:48 | CM ---
Received consult to [facility] [employer] 49/51 BID for patient. Called [facility] and spoke with someone named, Buster who stated that one month's supply would be 602.00. She stated that is most likely due to patient's deductible not being met the
medication is so expensive. Updated attending and Cardiology. Will try to determine if patient has met deductible and if so, how much medication will cost once that is paid.
Plan: Case management will continue to follow and assist with discharge planning. Home when cleared for discharge.
[2024-10-29] MEDS: LOVENOX 40 MG SC (17:02)
[2024-10-29] MEDS: TOPROL XL 25 MG PO (20:05)
[2024-10-29] MEDS: COLACE 100 MG PO (20:05)
[2024-10-30 05:47] VITALS: BMI 27.7
[2024-10-30 07:00] VITALS: BP 120/74
[2024-10-30 07:33] LABS: Blood Urea Nitrogen 37 mg/dl (9-20); Calcium 8.9 mg/dl (8.4-10.2); Carbon Dioxide 27 mmol/L (22-30); Chloride 102 mmol/L (98-107); Estimated Creatinine Clearance 50 ml/min; Glucose 103 mg/dl (70-99); Potassium 3.9 mmol/L (3.5-5.1); Sodium 139 mmol/L (135-145); eGFR > 60.00
[2024-10-30] MEDS: LIPITOR 20 MG PO (07:35)
[2024-10-30] MEDS: LOW STRENGTH ASPIRIN 81 MG PO (07:35)
[2024-10-30] MEDS: COLACE PO (07:35)
[2024-10-30] MEDS: ALDACTONE 25 MG PO (07:36)
[2024-10-30] MEDS: THERAGRAN 1 TABLET PO (07:36)
[2024-10-30] MEDS: PROTONIX 40 MG PO (07:36)
[2024-10-30] MEDS: VITAMIN C 1000 MG PO (07:36)
[2024-10-30] MEDS: PROSCAR 5 MG PO (07:36)
[2024-10-30] MEDS: LASIX 40 MG IV ×2 (07:36→15:01)
[2024-10-30] MEDS: DIOVAN 80 MG PO (07:36)
--- NOTE | 2024-10-30 08:46 | W.PN.CD ---
Today's Communication / Plan
-
Start farxiga 10mg daily
continue IV diuresis with intensive monitoring of lyte
start amyloidosis lab/urine work up (results as op)
transition to entresto Saturday
Impression / Plan
-
Background: 84M with dyslipidemia, GERD, BPH, and benign monoclonal gammopathy presented to the emergency department with a chief complaint of shortness of breath, subsequently diagnosed with acute HFrEF (LVEF 35).
Acute HFrEF, new, nonischemic
- Still volume overloaded, continue IV diureisis
-JOHN/ARB/ARNI: can affort Entresto, will start Saturday, stop valsartan
-SGLT2 inhibitor: start farxiga 10mg daily
-Aldosterone agonist: 25mg daily
-Beta gema: Succinate 25 daily
-ICD: not indicated yet
-Will pursue NICMY as an outpt, for now will order SPEP, Serum free light chains and 24hr urine for PEP (not urine light chains)
CAD: 70% D2, medically manage, could consider intervention if became symptomatic
HTN:
controlled
HLD,
- LDL = 89, HDL = 45, Triglycerides = 74.
- Increase statin, goal LDL less than 70 with CAD
LBBB/First degree AV block, ew diagnosis, not present 2020
- If LVEF does not improve SCABBLER (BiV pacing +/- ICD) will be an option
MGUS
- Chronic.
- Follows with Dr. Marcus Marcus ([place] [facility] critical care nurse practitioner).
- IgG 2380 in 2018.
- Possible progression (amyloid)? There is mild concentric LVH by measurement
Subjective/Interval History:
feeling better lying flat, no cp
DATA:
Cath 10/28/2024: 40% mLAD, 70% D2, LVEDP 27, RA 9, PA 54/28, PCWP 27
Echo 10/27/2024: LVEF 35, global hypo, grade II diastolic dysxn, mild AI, LVH by measurement
EKG 10/27/2024: SR 102 bpm, CO 232, LBBB, QRS 160 ms
Physical Exam
Vital Signs/Labs
Vital Signs
Temp Pulse Resp BP Pulse Ox
97.6 F 87 18 116/60 96
10/29/24 23:26 10/29/24 23:26 10/29/24 23:26 10/29/24 23:26 10/29/24 23:26
10/29/24 10/30/24 10/31/24
06:59 06:59 06:59
Actual Weight 91.257 kg 89.896 kg
10/29/24 06:38
10/30/24 06:01
Magnesium 2.0 mg/dl (1.6-2.3) 10/27/24 06:28
Triglycerides 74 mg/dl (10-149) 10/27/24 06:28
LDL Cholesterol, Calc 89 mg/dl 10/27/24 06:28
VLDL Cholesterol, Calc 14 mg/dl (0-30) 10/27/24 06:28
HDL Cholesterol 45 mg/dl 10/27/24 06:28
10/26/24
18:08
Jem-W-Vilshknfgtw Pept 5700
LAB Results
10/27/24 10/27/24
15:36 20:26
Troponin I 0.015 0.013
Physical Exam
Constitutional: No acute distress
Cardiovascular: Rhythm & rate is regular, Pedal edema is absent, Systolic murmur absent, Diastolic murmur absent and JVD present (13cm sitting upright)
Respiratory: Respiratory effort normal and Crackles Present (bibasilar rales)
Neuro/Psych: AO x 3
Data Reviewed
-
Date of Service: October 30, 2024
Medical Decision Making: Review of Case with other Provider
EKG: Other
--- NOTE | 2024-10-30 08:59 | W.PN.HOSP.TC ---
Today's Communication/Plan
-
IV Lasix. GDMT adjustments.
Assessment / Plan
Assessment / Plan
Physical exam:
General: Well Developed, Well Nourished and No Apparent Distress
HEENT: Normocephalic, Atraumatic and Moist Mucous Membranes
Respiratory: Bilateral crackles; Negative Wheezes or Rhonchi
Cardiac: Regular Rhythm and S1/S2,
GI: Soft, Nontender and Nondistended
Musculoskeletal: No Clubbing, No Cyanosis and trace edema
Neuro: Awake, Alert and Oriented, no neurological deficits
Psych: Calm
Cardiac cath:
1. Right dominant circulation with luminal irregularities in the RCA, a 70% lesion in the proximal third of D2 and a nonocclusive 40% lesion in the mid LAD (IFR = 0.93).
2. Severely elevated filling pressures (LVEDP = 27 mmHg, PCWP = 27 mmHg at 91.6 kg).
3. Preserved cardiac function (cardiac index = 3.26 L/min/m�)
4. 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
A/P:
Acute systolic and diastolic congestive heart failure:
Concerns for progression of amyloid and outpatient MRI and consideration for endomyocardial biopsy. Cardiology will order SPEP, serum free light chains, 24-hour urine for PEP.
Reevaluation by hematology as outpatient
IV Lasix 40 mg twice a day
GDMT with metoprolol succinate 25 mg p.o. daily. MRA with Aldactone 25 mg p.o. daily. Diovan was started but now discontinued in favor of Entresto but will be started on Saturday evening. Start Farxiga 10 mg p.o. daily.
Echo showed EF 35% and stage II diastolic dysfunction and mild aortic regurgitation
Cardiology consult appreciated-discussed with cardiology today via [place] text
Status post cardiac catheterization 10/28 with evidence of CAD and decided on medical management
Discussed with at bedside today
Discussed with cardiology today
CAD:
Continue aspirin, beta-blockers, and statins.
Hypertension:
Started on beta-blockers, Diovan, Aldactone.
Hyperlipidemia:
Continue statin but increased doses
MGUS:
Follow-up with hematology as outpatient
LBBB and first-degree AV block:
front desk monitor
Consideration of ACCESS CLERK if EF does not improve on optimal treatment down the road.
BPH:
Continue Proscar
DVT prophylaxis:
Lovenox SQ
CODE STATUS:
DNR
Total time spent on today's encounter was 52 minutes which included time spent in counseling the patient/family regarding diagnosis and treatment plan as listed above, goals of care, and symptom management. Case was discussed with nursing staff,
specialists, and care coordinators/case management. All labs and imaging personally reviewed by me. Remainder the time spent in detailed review of previous records, lab data, imaging, and other medical provider documentation.
Anticipated Discharge: Within 24 hours
Subjective/Interval History
-
Date of Service: October 30, 2024
Patient denies any worsening shortness of breath today or chest pain. He had been able to lie flat now. Afebrile
Objective Data
-
Labs:
Laboratory Results
10/30/24
06:01
Sodium 139
Potassium 3.9
Chloride 102
Carbon Dioxide 27
BUN 37 H
Creatinine 1.2
Glucose 103 H
Calcium 8.9
Vital Signs:
Vital Signs
Temp Pulse Resp BP Pulse Ox
97.6 F 87 18 116/60 96
10/29/24 23:26 10/29/24 23:26 10/29/24 23:26 10/29/24 23:26 10/29/24 23:26
I&O
10/29/24 10/30/24 10/31/24
06:59 06:59 06:59
Intake Total 440 / 440 120 / 120
Output Total 1150 / 1150
Balance -710 / -710 120 / 120
[2024-10-30] MEDS: FARXIGA 10 MG PO (11:31)
--- NOTE | 2024-10-30 14:41 | CM ---
CM following re: discharge planning.
Reviewed pt's chart, met with pt and pt's spouse at bedside.
Pt reports he knows he will have Entresto medication at discharge and he stated it affordable.
Pt stated he still does not know about Farxiga vs Jardiance.
Free 30 days trial coupons for Entresto, Farxiga and Jardiance given to the pt.
IMM reviewed, placed on chart, pt has a copy.
D/C plan: home with anticipated no needs. Spouse to transport,
[2024-10-30 15:00] VITALS: BP 103/57
[2024-10-30] MEDS: LOVENOX 40 MG SC (17:14)
[2024-10-30] MEDS: TOPROL XL 25 MG PO (21:07)
[2024-10-30] MEDS: COLACE 100 MG PO (21:07)
[2024-10-30 22:49] VITALS: BP 105/61
[2024-10-31 07:00] VITALS: BP 114/72
[2024-10-31] MEDS: LASIX 40 MG IV (08:20)
[2024-10-31] MEDS: FARXIGA 10 MG PO (08:20)
[2024-10-31] MEDS: PROTONIX 40 MG PO (08:20)
[2024-10-31] MEDS: LIPITOR 20 MG PO (08:21)
[2024-10-31] MEDS: LOW STRENGTH ASPIRIN 81 MG PO (08:21)
[2024-10-31] MEDS: VITAMIN C 1000 MG PO (08:21)
[2024-10-31] MEDS: THERAGRAN 1 TABLET PO (08:21)
[2024-10-31] MEDS: ALDACTONE 25 MG PO (08:21)
[2024-10-31] MEDS: COLACE 100 MG PO (08:21)
[2024-10-31] MEDS: PROSCAR 5 MG PO (08:21)
--- NOTE | 2024-10-31 08:29 | W.PN.CD ---
Today's Communication / Plan
-
-aim 'dry weight' 200lbs. He will resume furosemide when he reaches that weight.
Discharge medications:
-JOHN/ARB/ARNI: can afford Entresto, will start at op follow up given slight cr bump
-will check op renal function in 5 days
-SGLT2 inhibitor: started farxiga 10mg daily
-Aldosterone agonist: started 25mg daily
-Beta gema: started Succinate 25 daily
-Diuresis: likely 40mg furosmide daily once 200lbs
-ICD: not indicated yet
-Will pursue [facility] as an outpt, will order 24hr urine for PEP (not urine light chains) at op visit.
-ok to discharge home
Impression / Plan
-
Background: 84M with dyslipidemia, GERD, BPH, and benign monoclonal gammopathy presented to the emergency department with a chief complaint of shortness of breath, subsequently diagnosed with acute HFrEF (LVEF 35).
Acute HFrEF, new, nonischemic
-wt now 198.3 from 213 on admission.
- slight bump in cr, will call 'dry weight' 200lbs. He will resume furosemide when he reaches that weight.
-JOHN/ARB/ARNI: can afford Entresto, will start at op follow up given slight cr bump
-SGLT2 inhibitor: start farxiga 10mg daily
-Aldosterone agonist: 25mg daily
-Beta gema: Succinate 25 daily
-Diuresis: likely 40mg furosmide daily
-ICD: not indicated yet
-Will pursue [facility] as an outpt, for now will order SPEP, Serum free light chains, didn't complete 24hr urine for PEP (not urine light chains) as not started until 8pm, will cancel and order at op visit.
CAD: 70% D2, medically manage, could consider intervention if became symptomatic
HTN:
controlled
HLD,
- LDL = 89, HDL = 45, Triglycerides = 74.
- Increase statin, goal LDL less than 70 with CAD
LBBB/First degree AV block, ew diagnosis, not present 2020
- If LVEF does not improve CANE FLUME WATCHMAN (BiV pacing +/- ICD) will be an option
MGUS
- Chronic.
- Follows with Dr. Marcus Marcus ([facility] scheduler).
- IgG 2380 in 2018.
- Possible progression (amyloid)? There is mild concentric LVH by measurement
Subjective/Interval History:
feeling great, no complaints
DATA:
Cath 10/28/2024: 40% mLAD, 70% D2, LVEDP 27, RA 9, PA 54/28, PCWP 27
Echo 10/27/2024: LVEF 35, global hypo, grade II diastolic dysxn, mild AI, LVH by measurement
EKG 10/27/2024: SR 102 bpm, GA 232, LBBB, QRS 160 ms
Physical Exam
Vital Signs/Labs
Vital Signs
Temp Pulse Resp BP Pulse Ox
97.5 F 91 18 114/72 97
10/31/24 07:00 10/31/24 07:00 10/31/24 07:00 10/31/24 07:00 10/31/24 07:00
10/30/24 10/31/24 11/01/24
06:59 06:59 06:59
Actual Weight 198 lb 3 oz
10/29/24 06:38
Magnesium 2.0 mg/dl (1.6-2.3) 10/27/24 06:28
Triglycerides 74 mg/dl (10-149) 10/27/24 06:28
LDL Cholesterol, Calc 89 mg/dl 10/27/24 06:28
VLDL Cholesterol, Calc 14 mg/dl (0-30) 10/27/24 06:28
HDL Cholesterol 45 mg/dl 10/27/24 06:28
10/26/24
18:08
Ivy-H-Khotxokgniq Pept 5700
Physical Exam
Constitutional: No acute distress
Cardiovascular: Rhythm & rate is regular, Pedal edema is absent, JVD pressure is normal, Systolic murmur absent, Diastolic murmur absent and Rhythm/rate is irregular
Respiratory: Respiratory effort normal, Lungs clear to auscul., Wheeze Absent, Crackles Absent, Rhonchi Absent and Labored respirations
Neuro/Psych: AO x 3
Data Reviewed
-
Date of Service: October 31, 2024
Medical Decision Making: Review of Case with other Provider (Dr Sahu discharge plans and med reccs)
[2024-10-31 08:35] LABS: Blood Urea Nitrogen 47 mg/dl (9-20); Calcium 8.8 mg/dl (8.4-10.2); Carbon Dioxide 24 mmol/L (22-30); Chloride 101 mmol/L (98-107); Estimated Creatinine Clearance 40 ml/min; Glucose 102 mg/dl (70-99); Potassium 4.1 mmol/L (3.5-5.1); Sodium 139 mmol/L (135-145); eGFR 45.91
[2024-10-31] MEDS: MIRALAX 17 GRAMS PO (08:42)
--- NOTE | 2024-10-31 09:28 | W.PN.HOSP.TC ---
Today's Communication/Plan
-
Discharge planning today
Assessment / Plan
Assessment / Plan
Physical exam:
General: Well Developed, Well Nourished and No Apparent Distress
HEENT: Normocephalic, Atraumatic and Moist Mucous Membranes
Respiratory: Clear to auscultation bilateral; Negative Wheezes or Rhonchi
Cardiac: Regular Rhythm and S1/S2,
GI: Soft, Nontender and Nondistended
Musculoskeletal: No Clubbing, No Cyanosis and no edema
Neuro: Awake, Alert and Oriented, no neurological deficits
Psych: Calm
Cardiac cath:
1. Right dominant circulation with luminal irregularities in the RCA, a 70% lesion in the proximal third of D2 and a nonocclusive 40% lesion in the mid LAD (IFR = 0.93).
2. Severely elevated filling pressures (LVEDP = 27 mmHg, PCWP = 27 mmHg at 91.6 kg).
3. Preserved cardiac function (cardiac index = 3.26 L/min/m�)
4. 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
A/P:
Acute systolic and diastolic congestive heart failure:
Concerns for progression of amyloid and outpatient MRI and consideration for endomyocardial biopsy. Cardiology ordered SPEP, serum free light chains, 24-hour urine for PEP. Unfortunately 24-hour urine could not be performed so will be done as
outpatient.
Reevaluation by hematology as outpatient
IV Lasix 40 mg twice a day-hold today and restart oral Lasix 40 mg daily on Saturday.
GDMT with metoprolol succinate 25 mg p.o. daily. MRA with Aldactone 25 mg p.o. daily. Diovan was started but now discontinued in favor of Entresto but will be started on Saturday evening. Start Farxiga 10 mg p.o. daily.
Echo showed EF 35% and stage II diastolic dysfunction and mild aortic regurgitation
Cardiology consult appreciated-discussed with cardiology today via [place] text
Status post cardiac catheterization 10/28 with evidence of CAD and decided on medical management
Discussed with at bedside today
Discussed with cardiology today-cleared for discharge today and see discharge instructions.
BLADIMIR:
Hold Lasix
No ARB or Entresto for now until reevaluation as outpatient
CAD:
Continue aspirin, beta-blockers, and statins.
Hypertension:
Started on beta-blockers, Diovan, Aldactone.
Hyperlipidemia:
Continue statin but increased doses
MGUS:
Follow-up with hematology as outpatient
LBBB and first-degree AV block:
quality assurance monitor
Consideration of OCCUPATIONAL HEALTH NURSING DIRECTOR if EF does not improve on optimal treatment down the road.
BPH:
Continue Proscar
DVT prophylaxis:
Lovenox SQ
CODE STATUS:
DNR
Anticipated Discharge: Today
Subjective/Interval History
-
Date of Service: October 31, 2024
Feels well no chest pain or shortness of breath.
Objective Data
-
Labs:
Laboratory Results
10/31/24
07:13
Sodium 139
Potassium 4.1
Chloride 101
Carbon Dioxide 24
BUN 47 H
Creatinine 1.5 H
Glucose 102 H
Calcium 8.8
Vital Signs:
Vital Signs
Temp Pulse Resp BP Pulse Ox
97.5 F 91 18 114/72 97
10/31/24 07:00 10/31/24 08:20 10/31/24 07:00 10/31/24 08:20 10/31/24 07:00
I&O
10/30/24 10/31/24 11/01/24
06:59 06:59 06:59
Intake Total 120 / 120 480 / 480
Output Total 250 / 250
Balance 120 / 120 230 / 230
--- NOTE | 2024-10-31 11:58 | W.DCSUMMARY ---
Discharge Summary
Discharge Data
Date of Admission: 10/26/24
Date of Discharge: 10/31/24
-
Pending Results: No
Hospital Course
Patient 84 years old male with history of hyperlipidemia, BPH, monoclonal gammopathy, presents to the hospital with chest pain and shortness of breath found to be in acute heart failure. Cardiology consulted. Patient was started on IV diuresis.
Echocardiogram revealed an ejection fraction of 35% and global hypokinesis and stage II diastolic dysfunction with mild aortic regurgitation. He underwent cardiac catheterization. He also had evidence of CAD but cardiology did not feel was the
culprit of hospitalization and recommended aggressive medical management. Patient continued to be diuresed and also GDMT medications were added. Patient had a bump in his creatinine and cardiology recommended to hold diuretics and restart as
outpatient on Saturday. Due to the BLADIMIR Entresto was going to be started but now is going to be on hold and will restart depending on renal function as outpatient. Cardiology cleared for discharge today. He will be discharged in stable condition
today.
Discharge duration: 35 minutes
Discharge Plan
-
Patient Disposition: Home (Routine Discharge)
Discharge Diagnosis/Procedures: Acute systolic and diastolic congestive heart failure. Coronary artery disease. Cardiac cath
Diet: Low Cholesterol and 2 Gram Sodium
Driving Restrictions: No driving for 24 hours
Blood Work: BMP within 1 week
Specialty Instructions: Weigh Daily- Call MD for wt gain/loss 3 lbs overnight/5 lbs in 1 week
Instructions: *PCP/Other Slide Forming Machine Tender Heart Failure Instructions
Stand Alone Forms: DC Instructions- Cath/EP Lab
Referrals:
Eve Sanchez CRNP [Specified Professional Personl] - 11/17/24 8:40 am
Harsh Oakes MD [Family Provider] -
Prescriptions:
New
atorvastatin 20 mg Tablet
20 mg PO DAILY 30 Days Qty: 30 0RF
spironolactone 25 mg Tablet
25 mg PO DAILY 30 Days Qty: 30 0RF
aspirin 81 mg Tablet,Chewable
81 mg PO DAILY 30 Days Qty: 30 0RF
metoprolol succinate 25 mg Tablet Extended Release 24 Hr
25 mg PO DAILY@1999 30 Days Qty: 30 0RF
dapagliflozin propanediol 10 mg Tablet
10 mg PO DAILY 30 Days Qty: 30 0RF
furosemide [Lasix] 40 mg tablet
40 mg PO DAILY Qty: 30 0RF
Rx Instructions:
Start medication on Saturday11/02/2024.
Continued
ascorbic acid (vitamin C) [Vitamin C] 1,000 MG tablet
1,000 mg PO DAILY
atorvastatin 10 MG tablet
5 mg PO DAILY
finasteride 5 MG tablet
5 mg PO DAILY
esomeprazole magnesium [Nexium] 20 MG capsule,delayed release(DR/EC)
20 mg PO DAILY
loratadine 10 MG capsule
10 mg PO DAILYPRN PRN (Reason: allergies)
cetirizine 10 MG tablet
10 mg PO DAILYPRN PRN (Reason: allergies)
fluticasone propionate 50 mcg/actuation [place],Suspension
2 spray INTRANASAL DAILY
therapeutic multivitamin Tablet
1 tab PO DAILY
omega 8-xhc-bdz-fish oil [Fish Oil] 1,200 (144-216) mg Capsule
1 cap PO DAILY
Discharge Orders:
Discharge Patient (As Directed); Ordered 10/31/24
Ordered By: Denilson Sahu
Discharge Date and Time
Discharge Date/Time: 10/31/24 13:22
Print Language: MOZAMBICAN
[2024-10-31 12:28] VITALS: BP 116/67
--- NOTE | 2024-10-31 16:23 | CM ---
Pt to dc today with his . No needs anticipated
--- NOTE | 2024-11-02 11:42 | W.HF.CON ---
Heart Failure
- LV Function
Left ventricular function study result: LV Ejection fraction </= 35%
Ejection Fraction Percentage: 35
- ARNI
Patient already on ARNI: No
Heart Failure ARNI Contraindication: Acute Renal Failure
- ACEI/ARB
Patient already on ACEI/ARB: No
Heart Failure ACEI/ARB Contraindication: Acute Renal Failure
- Beta Chacho
Patient already on Evidence Based Beta Chacho: Yes
- Mineralocorticord Receptor Antagonist
Patient already on MRA: Yes
- SGLT-2 Inhibitor
Patient already on SGLT-2 Inhibitor: Yes
- NYHA CHF Classification
NYHA CHF Classification Level: Class III - Symptoms w/ min exertion, interferes w/ nml daily activity
- ACC/AHA Stage
ACC/AHA Stage: Stage C: Symptomatic Heart Failure
[2024-11-03 11:58] LABS: Albumin 3.83 g/dL (3.75-5.01); Alpha 1 Globulin 0.25 g/dL (0.19-0.46); Alpha 2 Globulin 0.68 g/dL (0.48-1.05); Free Kappa Light Chains,Quant 19.32 mg/L (3.30-19.40); Free Lambda Light Chains,Quant 57.92 mg/L (5.71-26.30); IgA 140 mg/dL (68-408); IgG 2390 mg/dL (768-1632); IgM 150 mg/dL (35-263); Immunofixation Electrophoresis IFE Done; Kappa/Lambda Fr Light Ratio 0.33 (0.26-1.65); Monoclonal Protein 1.95 g/dL (<=0.00); Total Protein-Electrophoresis 7.7 g/dL (6.3-8.2)
== END 2024-10-31 13:22 | disposition home or self-care (01) | DRG 545 ==
LOC: 4 WEST ACU 23:48
PROVIDERS: Clinical Nurse Specialist Family Health; Internal Medicine Cardiovascular Disease; Nurse Practitioner Gerontology; Student in an Organized Health Care Education/Training Program; ADMITTING PHYSICIAN Hospitalist; ATTENDING PHYSICIAN Hospitalist; CONSULT PHYSICIAN Internal Medicine Cardiovascular Disease; EMERGENCY PHYSICIAN Student in an Organized Health Care Education/Training Program; FAMILY PHYSICIAN Family Medicine
PROC: B2111ZZ Fluoroscopy of Multiple Coronary Arteries using Low Osmolar Contrast (ICD-10-PCS; 2024-10-28)
PROC: 4A023N8 Measurement of Cardiac Sampling and Pressure, Bilateral, Percutaneous Approach (ICD-10-PCS; 2024-10-28)
PROC: 4A033BC Measurement of Arterial Pressure, Coronary, Percutaneous Approach (ICD-10-PCS; 2024-10-28)
DX: E85.4 Organ-limited amyloidosis (principal); I50.21 Acute systolic (congestive) heart failure; I43 Cardiomyopathy in diseases classified elsewhere; D47.2 Monoclonal gammopathy; E78.00 Pure hypercholesterolemia, unspecified; N40.0 Benign prostatic hyperplasia without lower urinary tract symptoms; I11.0 Hypertensive heart disease with heart failure; I44.7 Left bundle-branch block, unspecified; I27.29 Other secondary pulmonary hypertension; I44.0 Atrioventricular block, first degree; K21.9 Gastro-esophageal reflux disease without esophagitis; Z66 Do not resuscitate; Z79.82 Long term (current) use of aspirin; Z79.899 Other long term (current) drug therapy; Z82.49 Family history of ischemic heart disease and other diseases of the circulatory system; Z87.891 Personal history of nicotine dependence
CPT/HCPCS: 71046; 80048; 80053; 80061; 82784; 83521; 83735; 83880; 84155; 84165; 84484; 85025; 85027; 85347; 86334; 87502; 87811; 93005; 93306; 93460; 93799; 96374; 97116; 97162; 97166; 97530; 99285; C1769; C1894; Q9967

== ENCOUNTER → 2025-01-20 08:42 | Outpatient (REF) | payer MEDICARE, OTHER, SELFPAY | LOC: MRI 08:42 | PROVIDERS: ATTENDING PHYSICIAN Nurse Practitioner; FAMILY PHYSICIAN Family Medicine | DX: I42.8 Other cardiomyopathies (principal); I25.10 Atherosclerotic heart disease of native coronary artery without angina pectoris; E78.5 Hyperlipidemia, unspecified | CPT/HCPCS: 75561; 75565; A9585 ==

== ENCOUNTER → 2025-03-30 08:20 | Outpatient (REF) | payer MEDICARE, OTHER, SELFPAY ==
--- NOTE | 2025-03-30 09:30 | CARDSERVLU ---
Echocardiogram with Lumason completed after protocol screening completed. Allergies verified.
Patent IV site: ___new start 22P RAC 1st attempt__
IV site flushed with 0.9% NaCl pre and post administration.
Diluted bolus method utilized to enhance visualization of ventricular bashir.
Total volume given: __3.5__ mL
site dcd at completion of testing, pt discharged.
Patient tolerated all procedures well without complications.
== END ==
LOC: RCS 08:20
PROVIDERS: ATTENDING PHYSICIAN Internal Medicine Cardiovascular Disease; FAMILY PHYSICIAN Family Medicine
DX: I42.8 Other cardiomyopathies (principal)
CPT/HCPCS: 93306; Q9950